=== PATIENT | female | born 1940 | race Caucasian/White ===

== ENCOUNTER 2018-12-18 19:03 | Inpatient (IN) | payer MEDICARE ==
[~2018-12-18] VITALS: Ht 332.7 cm; Wt 60.8 kg
[2018-12-18] MEDS ORDERED: GENTAMICIN SULFATE INJ 80 MG in IV DEXTROSE 5% 100 ML IV ONE (19:30)
[2018-12-18] MEDS ORDERED: CEFTRIAXONE 1 G in IV DEXTROSE 5% 50 ML IV ONE (19:30)
[2018-12-18] MEDS ORDERED: IV NORMAL SALINE 1000 ML BAG IV ONE (19:30)
[2018-12-18 19:36] LABS: BASOPHILS # (AUTO) 0.1 K/uL (0.0-8.0); BASOPHILS % (AUTO) 0.7 % (0.0-2.0); EOSINOPHILS # (AUTO) 0.4 K/uL (0.0-0.7); EOSINOPHILS % (AUTO) 5.1 % (0.0-7.0); HEMOGLOBIN 10.6 g/dL (10.9-14.3); LYMPHOCYTES # (AUTO) 3.4 K/uL (20.0-40.0); LYMPHOCYTES % (AUTO) 39.3 % (20.5-51.5); MEAN CORPUSCULAR HEMOGLOBIN 29.6 uug (24.7-32.8); MEAN CORPUSCULAR HGB CONC 33 g/dL (32.3-35.6); MEAN CORPUSCULAR VOLUME 89.7 fL (75.5-95.3); MONOCYTES # (AUTO) 0.6 K/uL (2.0-10.0); MONOCYTES % (AUTO) 6.7 % (0.0-11.0); NEUTROPHILS # (AUTO) 4.2 K/uL (1.8-8.9); NEUTROPHILS % (AUTO) 48.2 % (38.5-71.5); PLATELET COUNT (AUTO) 371 K/uL (179-408); RED BLOOD CELL COUNT(AUTO) 3.56 MIL/uL (3.63-4.92); WHITE BLOOD COUNT (AUTO) 8.8 K/uL (3.8-11.8)
[2018-12-18 19:44] LABS: CARBON DIOXIDE 21 mmol/L (21-32); CHLORIDE 100 mmol/L (98-107); CREATININE 1.4 mg/dL (0.6-1.3); GLUCOSE 99 mg/dL (74-106); POTASSIUM 4.2 mmol/L (3.5-5.1); UREA NITROGEN, BLOOD 29 mg/dL (7-18)
[2018-12-18] MEDS ORDERED: CEFTRIAXONE 1 G VIAL ONE (19:48)
[2018-12-18] MEDS ORDERED: OXYB5TAB11 PO (19:50)
[2018-12-18] MEDS ORDERED: FLUO20CA36 PO (19:50)
[2018-12-18] MEDS ORDERED: AMLO10TA7 PO (19:50)
[2018-12-18] MEDS ORDERED: IBUP-1955 PO (19:50)
[2018-12-18] MEDS ORDERED: HYDR-3026 PO (19:50)
[2018-12-18] MEDS ORDERED: OMEP20CA10 PO (19:50)
[2018-12-18] MEDS ORDERED: GABA-536 PO (19:50)
[2018-12-18] MEDS ORDERED: LISI-603 PO (19:50)
[2018-12-18 19:56] LABS: ALANINE AMINOTRANSFERASE 16 U/L (14-59); ALKALINE PHOSPHATASE 73 U/L (50-136); ASPARTATE AMINOTRANSFERASE 13 U/L (15-37); BILIRUBIN,DIRECT 0.1 mg/dL (0.0-0.2); BILIRUBIN,TOTAL 0.2 mg/dL (0.2-1.0); TOTAL PROTEIN, SERUM 6.9 g/dL (6.4-8.2)
[2018-12-18 20:17] LABS: *BILIRUBIN,URIN NEGATIVE (NEGATIVE); *BLOOD, URINE 1+ (NEGATIVE); *CLARITY,URINE CLOUDY (CLEAR); *COLOR,URINE YELLOW (YELLOW); *KETONES,URINE NEGATIVE (NEGATIVE); *UROBILINOGEN,URINE 0.2 E.U./dl (NORMAL); LEUKOCYTE ESTERASE ,URINE 3+ (NEGATIVE); NITRITE, URINE NEGATIVE (NEGATIVE); UGLUCOSE NEGATIVE (NEGATIVE)
[2018-12-18] MEDS ORDERED: GENTAMICIN SULFATE 80 MG/2 ML VIAL ONE (20:17)
[2018-12-18 20:25] LABS: WBC,URINE TNTC /HPF (0-3)
[2018-12-18 20:26] LABS: BACTERIA,URINE MANY /HPF (NONE SEEN); SQUAMOUS EPITHELIAL CELL,UR MODERATE /HPF (NONE SEEN)
--- NOTE | 2018-12-18 20:55 | NUR ---
Paged [employer] for panel call. Pending call back from Dr. Mcneal
--- NOTE | 2018-12-18 21:24 | NUR ---
Pt. admitted to Med/Surg, under care of Dr. Mcneal. Diagnosis: UTI Belongs List completed. MRSA swab done.
[2018-12-18 21:40] VITALS: BP 124/55
--- NOTE | 2018-12-18 21:48 | NUR ---
RECEIVED PT FROM ER [facility]IA [facility]. DX: ESBL UTI PT UNDER THE CARE OF DR. AZUL. PT IV INTACT. BELONGING LIST DONE. USP ASSESSMENT DONE. PICTURES TAKEN AND IN THE CHART. ADMISSION PROCESS AND CARE PLAN INITIATED. SAFETY AND COMFORT PROVIDED. WILL CONTINUE TO MONITOR.
[2018-12-18] MEDS ORDERED: hydrOXYzine HCL 25 MG TABLET PO PRN (22:15)
[2018-12-18] MEDS ORDERED: ONDANSETRON 4 MG/2 ML VIAL IV PRN (22:15)
[2018-12-18] MEDS ORDERED: HYDROCODONE/APAP 5-325MG TABLET PO PRN (22:15)
[2018-12-18] MEDS ORDERED: Z GUARD REMEDY PASTE 57 GM TUBE TOP PRN (22:15)
[2018-12-18] MEDS ORDERED: ACETAMINOPHEN 325 MG TABLET PO PRN (22:15)
[2018-12-18] MEDS ORDERED: MEROPENEM 1 G in IV NORMAL SALINE 100 ML IV SCH (22:15)
[2018-12-18] MEDS ORDERED: GABAPENTIN 400 MG CAPSULE PO PRN (22:15)
[2018-12-18] MEDS ORDERED: MAGNESIUM HYDROXIDE 30 ML LIQUID UDC PO PRN (22:15)
[2018-12-18] MEDS ORDERED: ZOLPIDEM 5 MG TABLET PO PRN (22:15)
[2018-12-18] MEDS ORDERED: MEROPENEM 1 G in IV NORMAL SALINE 100 ML IV ONE (22:45)
[2018-12-18] MEDS ORDERED: MEROPENEM 1 G VIAL IV ONE (23:22)
[2018-12-19] MEDS: IV NS 1000 ML 1,000 ML IV PRN ×2 (00:55→15:07)
[2018-12-19 05:55] VITALS: BP 105/43
[2018-12-19] MEDS ORDERED: PANTOPRAZOLE SODIUM 40 MG TABLET.DR PO SCH (06:00)
[2018-12-19] MEDS ORDERED: Medication Not On Formulary EA (Omeprazole 20 MG) PO SCH (06:00)
--- NOTE | 2018-12-19 06:04 | NUR ---
PT SLEPT THROUGHOUT THE SHIFT. PT SHOWS NO SIGNS OF ACUTE DISTRESS. PRESCRIBED MEDICATION GIVEN AND PT TOLERATED IT WELL.MEDICATIONS THAT SHE HAVE WAS GIVEN TO PHARMACY. SAFETY AND COMFORT PROVIDED. ALL NEEDS ARE MET. WILL ENDORSE ACCORDINGLY TO INCOMING NURSE FOR CONTINUITY OF CARE.
[2018-12-19 06:34] LABS: BASOPHILS % (AUTO) 0.4 % (0.0-2.0); EOSINOPHILS # (AUTO) 0.5 K/uL (0.0-0.7); HEMATOCRIT 32.2 % (31.2-41.9); HEMOGLOBIN 10.5 g/dL (10.9-14.3); LYMPHOCYTES # (AUTO) 2.8 K/uL (20.0-40.0); LYMPHOCYTES % (AUTO) 37.3 % (20.5-51.5); MEAN CORPUSCULAR HEMOGLOBIN 29.5 uug (24.7-32.8); MEAN CORPUSCULAR HGB CONC 33 g/dL (32.3-35.6); MEAN CORPUSCULAR VOLUME 90.1 fL (75.5-95.3); MONOCYTES # (AUTO) 0.6 K/uL (2.0-10.0); MONOCYTES % (AUTO) 8.5 % (0.0-11.0); NEUTROPHILS # (AUTO) 3.5 K/uL (1.8-8.9); NEUTROPHILS % (AUTO) 46.8 % (38.5-71.5); PLATELET COUNT (AUTO) 353 K/uL (179-408); RED BLOOD CELL COUNT(AUTO) 3.58 MIL/uL (3.63-4.92); WHITE BLOOD COUNT (AUTO) 7.6 K/uL (3.8-11.8)
[2018-12-19 06:40] LABS: ALANINE AMINOTRANSFERASE 17 U/L (14-59); ALKALINE PHOSPHATASE 67 U/L (50-136); ASPARTATE AMINOTRANSFERASE 12 U/L (15-37); BILIRUBIN,TOTAL 0.1 mg/dL (0.2-1.0); CARBON DIOXIDE 25 mmol/L (21-32); CHLORIDE 110 mmol/L (98-107); CHOLESTEROL 170 mg/dL (<200); CREATININE 1.1 mg/dL (0.6-1.3); GLUCOSE 92 mg/dL (74-106); HDL CHOLESTEROL 49 mg/dL (40-60); MAGNESIUM 2.1 mg/dL (1.8-2.4); PHOSPHOROUS 3.7 mg/dL (2.5-4.9); POTASSIUM 4.8 mmol/L (3.5-5.1); TRIGLYCERIDES 69 MG/DL (30-150); UREA NITROGEN, BLOOD 20 mg/dL (7-18)
[2018-12-19 07:03] LABS: THYROID STIMULATING HORMONE 2.011 mIU/mL (0.358-3.740)
[2018-12-19] MEDS ORDERED: hydrOXYzine HCL 25 MG TABLET PO PRN (07:15)
--- NOTE | 2018-12-19 07:15 | NUR ---
RECEIVED PATIENT AWAKE ALERT AND ORIENTED DENIES PAIN OR DISCOMFORTS AT THIS TIME ON ROOM AIR WITH NO SHORTNESS OF BREATH REMAIN ON IVF ORDERED WITH NO S/S OF INFILTERATION ON SITE.TELE IS SR WITH NO ECTOPY AT THIS TIME CALL LIGHTS AND PERSONAL BELONGINGS PLACED WITHIN EASY REACH NOT IN DISTRESS AND WILL CONTINUE TO OBSERVE.
--- NOTE | 2018-12-19 08:00 | NUR ---
EVELIA AGENCY RECRUITER HERE NOTIFIED HIM THAT PATIENT HAS ORDER TO SCRAP HER RASHES TO R/O SCABIES STATED THAT HE DOES NOT DO THAT STATED THAT IT SHOULD BE THE ID OR INFECTION CONTROL
[2018-12-19] MEDS: AMLODIPINE 10 MG TABLET PO SCH (08:59)
[2018-12-19] MEDS: LISINOPRIL 20 MG TABLET PO SCH ×2 (08:59→21:03)
[2018-12-19] MEDS: FLUOXETINE HCL 20 MG CAPSULE PO SCH ×2 (08:59→16:47)
[2018-12-19] MEDS ORDERED: OXYBUTYNIN CHLORIDE 5 MG TABLET PO SCH (09:00)
--- NOTE | 2018-12-19 09:00 | NUR ---
[facility]ENE INFECTION CONTROL PRACTITIONED HERE AND I NOTIFIED HIM STATED THE SCRAP SHOULD BE DONE BY EVELIA BUT AFTER HE SAW THE PICTURES STATED THAT THERE WAS NO NEED FOR THE SCRAPPING THAT PATIENT SHOULD INSTEAD BE TREATED FOR SCABIES WILL NOTIFY THE MEDICAL PRACTITIONER.
[2018-12-19 11:24] VITALS: BP 115/44
[2018-12-19] MEDS: MEROPENEM 1 G in IV NORMAL SALINE 100 ML IV SCH (11:36)
[2018-12-19] MEDS ORDERED: OXYB15TA PO (13:02)
[2018-12-19] MEDS ORDERED: PERMETHRIN 5% CREAM 60 GM TUBE TP ONE (13:15)
--- NOTE | 2018-12-19 14:43 | NUR ---
ELIMITE CREAM APPLIED TO THE ENTIRE BODY AND PATIENT EDUCATED THAT SHE WILL NEED TO BE WASHED OFF IN 12 HOURS AND ALL HER BED WILL BE CHANGED AND ALL HER PERSONAL CLOTHES BAGGED AND SHE WILL NEED TO WASH THEM IN HOT WATER ONCE SHE GETS HOME AND SHE EXPRESSED UNDERSTANDING
[2018-12-19 16:20] VITALS: BP 113/40
[2018-12-19] MEDS: OXYBUTYNIN XL 5 MG TABSR PO SCH (16:47)
--- NOTE | 2018-12-19 20:00 | NUR ---
Pt. is alert oriented x4, lying in bed, states is in no pain or discomfort. Pt. denies any difficulty breathing or SOB. Pt. on room air. IV in right wrist 20 gauge, patent and intact. Safety measures in place, call light within reach, bed alarm on. Will continue to monitor. Pt. knows around 2 AM bed bath will be given to remove Permethin cream applied 12 hours prior.
[2018-12-19 20:17] VITALS: BP 131/57
[2018-12-19] MEDS: HYDROCORTISONE 1% CREAM 30 GM TUBE TP SCH (21:11)
[2018-12-20] MEDS: MEROPENEM 1 G in IV NORMAL SALINE 100 ML IV SCH ×2 (00:34→11:38)
--- NOTE | 2018-12-20 01:50 | NUR ---
Gave pt. bed bath to remove Permethin cream. Cleaned pt. with soap and water, patted all areas dry. Hydrocortisone cream applied to areas of itchiness on body. Diaper changed. New gown and linen on bed. Old gown and linen in red hazard bag. Safety measures in place. Will continue to monitor.
[2018-12-20 05:59] VITALS: BP 130/46
--- NOTE | 2018-12-20 06:11 | NUR ---
Pt sleeping in bed. Throughout night pt. denied any pain or discomfort. pt. denied any SOB, or difficulty breathing. Changed diaper and all linen is new with old linen in red hazard bags. Hydrocortisone cream applied, all prescribed meds given. Vital signs stable. Will endorse to AM nurse for continuity of care
[2018-12-20 06:33] LABS: BASOPHILS % (AUTO) 0.6 % (0.0-2.0); EOSINOPHILS # (AUTO) 0.5 K/uL (0.0-0.7); HEMOGLOBIN 10.9 g/dL (10.9-14.3); LYMPHOCYTES # (AUTO) 2.9 K/uL (20.0-40.0); LYMPHOCYTES % (AUTO) 36.3 % (20.5-51.5); MEAN CORPUSCULAR HEMOGLOBIN 29.8 uug (24.7-32.8); MEAN CORPUSCULAR HGB CONC 33 g/dL (32.3-35.6); MEAN CORPUSCULAR VOLUME 90.1 fL (75.5-95.3); MONOCYTES # (AUTO) 0.6 K/uL (2.0-10.0); MONOCYTES % (AUTO) 7.8 % (0.0-11.0); NEUTROPHILS # (AUTO) 3.9 K/uL (1.8-8.9); NEUTROPHILS % (AUTO) 49.3 % (38.5-71.5); PLATELET COUNT (AUTO) 358 K/uL (179-408); RED BLOOD CELL COUNT(AUTO) 3.66 MIL/uL (3.63-4.92); WHITE BLOOD COUNT (AUTO) 7.9 K/uL (3.8-11.8)
[2018-12-20 06:56] LABS: CARBON DIOXIDE 25 mmol/L (21-32); CHLORIDE 107 mmol/L (98-107); CREATININE 0.9 mg/dL (0.6-1.3); GLUCOSE 96 mg/dL (74-106); POTASSIUM 4.3 mmol/L (3.5-5.1); UREA NITROGEN, BLOOD 16 mg/dL (7-18)
[2018-12-20] MEDS: PANTOPRAZOLE SODIUM 40 MG TABLET.DR PO SCH (07:12)
--- NOTE | 2018-12-20 07:20 | NUR ---
PATIENT WAKE AND ALERT X4, NO DISTRESS NOTED AT THIS TIME. BED IN LOWEST POSITION, SIDE RAILS UP X2, CALL LIGHT WITHIN REACH. WILL CONTINUE TO MONITOR.
[2018-12-20] MEDS: OXYBUTYNIN XL 5 MG TABSR PO SCH ×2 (08:33→17:14)
[2018-12-20] MEDS: FLUOXETINE HCL 20 MG CAPSULE PO SCH ×2 (08:33→17:14)
[2018-12-20] MEDS: AMLODIPINE 10 MG TABLET PO SCH (08:34)
[2018-12-20] MEDS: HYDROCORTISONE 1% CREAM 30 GM TUBE TP SCH ×3 (08:34→17:00)
[2018-12-20] MEDS: LISINOPRIL 20 MG TABLET PO SCH ×2 (08:34→20:17)
[2018-12-20] MEDS ORDERED: POLYVINYL ALCOHOL OPHT DROPS 15 ML BOTTLE EACHEYE PRN (09:00)
[2018-12-20] MEDS: IV NS 1000 ML 1,000 ML IV PRN (10:00)
[2018-12-20] MEDS ORDERED: FOSFOMYCIN TROMETHAMINE 3 GM PACKET PO ONE (10:30)
[2018-12-20 12:11] VITALS: BP 150/57
[2018-12-20 15:11] VITALS: BP 149/91
--- NOTE | 2018-12-20 18:13 | NUR ---
PATIENT RESTED INTERMITTENTLY THROUGHOUT DAY. IV ANTIBIOTICS GIVEN FOR UTI. PATIENT DENIES ANY COMPLAINTS OF ITCHY, AND REFUSES CORTISONE APPLICATION THREE TIMES A DAY. NO DISTRESS NOTED, PATIENT DENIES PAIN. BED IN LOWEST POSITION, SIDE RAILS UP X2, CALL LIGHT WITHIN REACH.
--- NOTE | 2018-12-20 19:45 | NUR ---
ALERT ORIENTED NO SOB NO CHEST PAIN. ON CONTACT ISOLATION FOR POSSIBLE SCABIES RASHES. PATIENT HAS MULTIPLE SKIN RASHES ON BODY, REPORTED THAT PATIENT REFUSED OINTMENT TX FOR THE SKIN RASHES. CALL LIGHT WITHIN REACH.
[2018-12-20 20:00] VITALS: BP 142/56
[2018-12-20] MEDS: MEROPENEM 0.5 G in IV NORMAL SALINE 50 ML IV SCH (21:33)
[2018-12-21] MEDS: IV NS 1000 ML 1,000 ML IV PRN (04:49)
[2018-12-21 05:10] VITALS: BP 125/53
[2018-12-21] MEDS: MEROPENEM 0.5 G in IV NORMAL SALINE 50 ML IV SCH ×2 (05:11→13:26)
[2018-12-21] MEDS: PANTOPRAZOLE SODIUM 40 MG TABLET.DR PO SCH (06:03)
--- NOTE | 2018-12-21 06:20 | NUR ---
PATIENT AWAKE NO SOB NO CHEST PAIN. REMAIN IN CONTACT ISOLATION FOR PROPHYLAXIS. PATIENT REFUSED HYDROCORTISONE OINTMENT FOR THE SKIN RASHES. CONT ON PAIN MANAGEMENT, KEPT CLEAN AND DRY. CONT TO MONITOR.
[2018-12-21 06:39] LABS: BASOPHILS # (AUTO) 0.1 K/uL (0.0-8.0); BASOPHILS % (AUTO) 0.8 % (0.0-2.0); EOSINOPHILS # (AUTO) 0.5 K/uL (0.0-0.7); EOSINOPHILS % (AUTO) 6.2 % (0.0-7.0); LYMPHOCYTES # (AUTO) 3.5 K/uL (20.0-40.0); LYMPHOCYTES % (AUTO) 46.7 % (20.5-51.5); MEAN CORPUSCULAR HEMOGLOBIN 29.4 uug (24.7-32.8); MEAN CORPUSCULAR HGB CONC 33 g/dL (32.3-35.6); MEAN CORPUSCULAR VOLUME 88.4 fL (75.5-95.3); MONOCYTES # (AUTO) 0.6 K/uL (2.0-10.0); MONOCYTES % (AUTO) 8.3 % (0.0-11.0); NEUTROPHILS # (AUTO) 2.9 K/uL (1.8-8.9); PLATELET COUNT (AUTO) 383 K/uL (179-408); RED BLOOD CELL COUNT(AUTO) 3.73 MIL/uL (3.63-4.92); WHITE BLOOD COUNT (AUTO) 7.6 K/uL (3.8-11.8)
[2018-12-21 06:46] LABS: CARBON DIOXIDE 24 mmol/L (21-32); CHLORIDE 105 mmol/L (98-107); CREATININE 0.9 mg/dL (0.6-1.3); GLUCOSE 91 mg/dL (74-106); POTASSIUM 3.7 mmol/L (3.5-5.1); UREA NITROGEN, BLOOD 13 mg/dL (7-18)
--- NOTE | 2018-12-21 07:25 | NUR ---
RECEIVED PATIENT SLEEPING IN BED. NO SIGNS AND SYMPTOMS OF DISTRESS. IV RUNNING FLUIDS. BED IN LOWEST POSITION, SIDE RAILS UP X2, CALL LIGHT WITHIN REACH. WILL CONTINUE TO MONITOR.
[2018-12-21] MEDS: FLUOXETINE HCL 20 MG CAPSULE PO SCH (08:57)
[2018-12-21] MEDS: OXYBUTYNIN XL 5 MG TABSR PO SCH (08:57)
[2018-12-21] MEDS: LISINOPRIL 20 MG TABLET PO SCH (08:58)
[2018-12-21] MEDS: AMLODIPINE 10 MG TABLET PO SCH (08:58)
[2018-12-21] MEDS: HYDROCORTISONE 1% CREAM 30 GM TUBE TP SCH ×2 (08:58→13:00)
[2018-12-21 11:49] VITALS: BP 144/65
[2018-12-21] MEDS ORDERED: NITR50CA PO (12:04)
[2018-12-21] MEDS ORDERED: HYDR30CR79 TP (12:04)
[2018-12-21 15:48] VITALS: BP 154/49
--- NOTE | 2018-12-21 17:34 | NUR ---
DISCHARGED PATIENT. DISCHARGE INSTRUCTIONS PROVIDED. PATIENT VERBALIZES UNDERSTANDING OF INSTRUCTIONS AND PRESCRIPTION MEDICATION. NO DISTRESS NOTED AT THIS TIME. PATIENT DENIES ANY PAIN AND DISCOMFORT AT THIS TIME. PATIENT DISCHARGED VIA [facility]AX[facility]. ACCOMPANIED PATIENT DOWN TO GET INTO CAB.
== END 2018-12-21 17:30 | DRG 689 ==
LOC: ER 19:09 → MEDSURG3 21:31
PROVIDERS: ADMIT Internal Medicine; ATTEND Internal Medicine
DX: N39.0 Urinary tract infection, site not specified (principal); N17.0 Acute kidney failure with tubular necrosis; E44.0 Moderate protein-calorie malnutrition; J98.11 Atelectasis; B96.20 Unspecified Escherichia coli [E. coli] as the cause of diseases classified elsewhere; Z16.12 Extended spectrum beta lactamase (ESBL) resistance; E78.5 Hyperlipidemia, unspecified; M79.7 Fibromyalgia; Z79.899 Other long term (current) drug therapy; R32 Unspecified urinary incontinence; G62.9 Polyneuropathy, unspecified; Z86.19 Personal history of other infectious and parasitic diseases; Z90.711 Acquired absence of uterus with remaining cervical stump; R53.82 Chronic fatigue, unspecified; I25.10 Atherosclerotic heart disease of native coronary artery without angina pectoris; I10 Essential (primary) hypertension; F41.9 Anxiety disorder, unspecified; F32.9 Major depressive disorder, single episode, unspecified; Z87.440 Personal history of urinary (tract) infections; R21 Rash and other nonspecific skin eruption
CPT/HCPCS: 36415; 70030-TC; 71045; 83605; 83735; 84100; 84443; 85025; 85730; 87040; 87077; 87086; 93005; A4663; G0378; J0696; J1580; J2185; J3490; J7030; J7040; J7060